=== PATIENT | male | born 1980 | race Caucasian/White ===

== ENCOUNTER 2024-03-30 02:52 | Day surgery (SDC) | payer BC, SELFPAY ==
[2024-03-15 14:56] VITALS: BMI 24.4
[2024-03-30 12:44] VITALS: BP 163/104; PULSE 51; RESP 16; TEMP 36.3; O2SAT 100
[2024-03-30] MEDS: LACTATED RINGERS 1,000 ML 150 ML IV CONT (12:56)
--- NOTE | 2024-03-30 12:57 | SUR.PREOP ---
Patient's blood pressure is 163/104. Dr. Waterman made aware and he is okay to proceed with procedure.
--- NOTE | 2024-03-30 13:42 | PM.HPGS ---
History of Present Illness History of Present Illness Consent: Risks, benefits, and alternatives have been discussed and questions answered. Patient agrees to proceed with procedure. Chief complaint: screening neoplasm colon Narrative: Daniel Biswas is a 44 year old male here for first screening colonoscopy Review of Systems Review of Systems: All systems reviewed & are unremarkable except as noted in HPI and below PMFSH Past Medical History Medical History (Updated 03/30/24 @ 13:43 by Vipin Manzo MD) Colon cancer screening Social History Social History Smoking status: Never smoker Alcohol intake: current Drinks per week: 7 Substance use type: does not use Living arrangements: with family Meds Home Medications and Allergies Home Medications ?Medication ?Instructions ?Recorded ?Confirmed ?Type No Home Medications 03/15/24 03/15/24 History Allergies Allergy/AdvReac Type Severity Reaction Status Date / Time No Known Allergies Allergy Unknown Verified 03/30/24 12:43 Vital Signs Vital Signs - 24 hr 03/30/24 12:44 Temperature 97.3 F L Pulse Rate 51 L Respiratory Rate 16 Blood Pressure 163/104 H Pulse Oximetry 100 Oxygen Delivery Room Air Exam Const: General: comfortable and no acute distress HENMT: Face/Nose/Sinus: Normal nares present Eyes: General: appearance normal, both eyes and all related structures Neck: Neck: no JVD Resp: Auscultation: clear to auscultation bilaterally Cardio: Rate: regular rate Rhythm: regular rhythm GI: Inspection: non-distended GI Palp: Yes Soft to palpation Skin: General skin exam: normal color Neuro: General: gait normal Speech: normal speech Extrem: General: normal to inspection Psych: Mental Status: mental status grossly normal Assessment and Plan Assessment and plan (1) Colon cancer screening: Code(s): Z12.11 - Encounter for screening for malignant neoplasm of colon Status: Acute Assessment and Plan: colonoscopy
--- NOTE | 2024-03-30 13:44 | WPDANESEPPF ---
Anes - Initial Pre Proc Eval Procedure: Operation Date: 03/30/24 13:30 Proposed Procedures p Colonoscopy - Vipin Manzo MD Date/Time: 03/30/24 13:44 Surgeon: Vipin Manzo MD Pre Op Diagnosis: screening neoplasm colon Patient Data Age: 44 Gender: M Height: 1.85 m Weight: 84.6 kg Last Vital Signs Temp 36.3 C L 03/30/24 12:44 Pulse 51 L 03/30/24 12:44 Resp 16 03/30/24 12:44 BP 163/104 H 03/30/24 12:44 Pulse Ox 100 03/30/24 12:44 O2 Del Method Room Air 03/30/24 12:44 Allergies Allergy/AdvReac Type Severity Reaction Status Date / Time No Known Allergies Allergy Unknown Verified 03/30/24 12:43 Home Medications ?Medication ?Instructions ?Recorded ?Confirmed ?Type No Home Medications 03/15/24 03/15/24 History Patient hx anesthesia problems: none Family hx anesthesia problems: none Results Review: All pre-operative results and documents have been reviewed as part of the pre-operative evaluation. [facility] Past Medical History Medical History Colon cancer screening Social History Social History Smoking status: Never smoker Alcohol intake: current Drinks per week: 7 Substance use type: does not use Living arrangements: with family Anes - Eval Final PreProcedure Day of Procedure 03/30/24 13:44 Patient weight: normal Heart: regular rate and rhythm Lungs: clear to auscultation Airway: Mallampati scale class II Neurological: alert and oriented Last oral intake: >/= 8 hours ASA classification: I Emergent: no Anesthetic plan: proceed Anesthesia type and monitoring: general GIVS and standard monitoring Results Review: All pre-operative results and documents have been reviewed as part of the pre-operative evaluation. Informed Consent: The patient's anesthetic plan and its attendant risks and benefits were discussed with the patient/family/POA. Questions were solicited and answers provided to the satisfaction of the patient/family/POA.
[2024-03-30 14:00] VITALS: BP 103/69; PULSE 51; RESP 19; O2SAT 100
[2024-03-30 14:10] VITALS: BP 108/71; PULSE 50; RESP 14; O2SAT 99
[2024-03-30 14:20] VITALS: BP 119/87; PULSE 50; RESP 14; O2SAT 97
== END 2024-03-30 14:37 | disposition home or self-care (01) ==
PROVIDERS: PCP Emergency Medicine; Visit Provider Internal Medicine Gastroenterology
PROC: 0DJD8ZZ Inspection of Lower Intestinal Tract, Via Natural or Artificial Opening Endoscopic (ICD-10-PCS; CPT 45378; principal; 2024-03-30 13:30)
DX: Z12.11 Encounter for screening for malignant neoplasm of colon (principal); K64.8 Other hemorrhoids
CPT/HCPCS: 45378; J7120